=== PATIENT | male | born 1950 | race Caucasian/White ===

== ENCOUNTER 2019-09-14 17:00 | Inpatient (IN) | payer MEDICARE ==
[~2019-09-14] VITALS: Ht 172.7 cm; Wt 126.6 kg
[2019-09-15 02:00] VITALS: BP 106/64
[2019-09-15] MEDS ORDERED: ACETAMINOPHEN 325MG TABLET PO PRN ×2 (02:15→14:15)
[2019-09-15] MEDS ORDERED: POLYVINYL ALCOHOL OPHTH DROPS 15ML RIGHTEYE PRN (02:15)
[2019-09-15] MEDS ORDERED: LISI10TA5 PO (02:20)
[2019-09-15] MEDS ORDERED: MIDO2.5T PO (02:20)
[2019-09-15] MEDS ORDERED: ALLO100T PO (02:20)
[2019-09-15] MEDS ORDERED: FURO40TA5 PO (02:20)
[2019-09-15] MEDS ORDERED: TAMS-11 PO (02:20)
[2019-09-15] MEDS ORDERED: OMEP20CA5 PO (02:20)
[2019-09-15] MEDS ORDERED: NEPHRO VITAMINS PO (02:20)
[2019-09-15 06:52] LABS: HEMATOCRIT. 28.3 % (42.0-52.0); HEMOGLOBIN. 9.3 g/dL (14.0-18.0); MEAN CORPUSCULAR HEMOGLOBIN 31.6 pg (28.0-32.0); MEAN PLATELET VOLUME 10.8 fl (7.4-10.4); PLATELET 217 x1000/uL (130-400); RED BLOOD CELL COUNT 2.95 mill/uL (4.7-6.1); RED CELL DISTRIBUTION WIDTH 16.4 % (11.6-14.6)
[2019-09-15] MEDS: MIDODRINE HCL 5MG TABLET PO SCH ×3 (08:40→16:21)
[2019-09-15] MEDS: HEPARIN 5000 UNITS/ML VIAL SUBCUT SCH ×2 (08:43→21:21)
[2019-09-15 12:00] VITALS: BP 108/51
[2019-09-15] MEDS: PIPERACILLIN/TAZOBACTAM 2.25 G in DEXTROSE 5% WATER 50 ML IV SCH (12:58)
[2019-09-15] MEDS ORDERED: VANCOMYCIN 2,000 MG in DEXT 5% WATER 500 ML IV SCH (14:00)
[2019-09-15] MEDS ORDERED: MORPHINE SULFATE 2 MG/ML CPJ (NOT FOR IM USE) IV PRN (14:15)
[2019-09-15] MEDS ORDERED: ACETAMINOPHEN 650MG SUPP PR PRN (14:15)
[2019-09-15] MEDS ORDERED: LACTULOSE 20G/30ML UDC PO PRN (14:15)
[2019-09-15] MEDS ORDERED: IPRATROPIUM/ALBUTEROL 0.5-3(2.5)MG/3ML NEB HHN PRN (14:15)
[2019-09-15] MEDS ORDERED: LORAZEPAM 2MG/ML CPJ IV PRN (14:15)
[2019-09-15] MEDS ORDERED: HYDRALAZINE 20MG/ML VIAL IV PRN (14:30)
[2019-09-15 14:33] LABS: ATYPICAL LYMPHOCYTES 1
[2019-09-15 14:34] LABS: PLATELET ESTIMATE NORMAL
[2019-09-15 16:00] VITALS: BP 116/59
[2019-09-15 20:00] VITALS: BP_SYST 138; BP_SYST 140; BP_DIAS 72; BP_DIAS 77; BP_DIAS 82
[2019-09-15] MEDS: FAMOTIDINE 20MG TABLET PO SCH (21:21)
[2019-09-16] VITALS: BP 119/65
[2019-09-16 00:27] LABS: INR 1.1; PARTIAL THROMBOPLASTIN TIME 29.2 sec (23.4-31.0)
[2019-09-16 04:00] VITALS: BP_SYST 122; BP_SYST 124; BP_DIAS 65
[2019-09-16 05:38] LABS: CHLORIDE 101 mEq/L (98-107)
[2019-09-16 06:16] LABS: HEMATOCRIT. 28.2 % (42.0-52.0); HEMOGLOBIN. 9.4 g/dL (14.0-18.0); MEAN CORPUSCULAR HEMOGLOBIN 31.8 pg (28.0-32.0); MEAN CORPUSCULAR VOLUME 95.8 fL (80.0-94.0); MEAN PLATELET VOLUME 10.3 fl (7.4-10.4); PLATELET 243 x1000/uL (130-400); RED BLOOD CELL COUNT 2.94 mill/uL (4.7-6.1); RED CELL DISTRIBUTION WIDTH 16.2 % (11.6-14.6)
[2019-09-16 07:23] LABS: PLATELET ESTIMATE NORMAL
[2019-09-16 08:00] VITALS: BP 125/49
[2019-09-16] MEDS: MIDODRINE HCL 5MG TABLET PO SCH ×2 (09:56→17:50)
[2019-09-16] MEDS: PIPERACILLIN/TAZOBACTAM 2.25 G in DEXTROSE 5% WATER 50 ML IV SCH ×2 (10:00→17:34)
[2019-09-16 12:18] VITALS: BP 116/97
[2019-09-16 16:26] VITALS: BP 122/50
[2019-09-16] MEDS ORDERED: HYDROCODONE/ACETAMINOPHEN 5/325MG TABLET PO PRN (17:15)
[2019-09-16] MEDS: HEPARIN 5000 UNITS/ML VIAL SUBCUT SCH ×2 (17:34→21:00)
[2019-09-16] MEDS: ALLOPURINOL 100 MG TABLET PO SCH (17:53)
[2019-09-16] MEDS ORDERED: VANCOMYCIN 1500MG in DEXTROSE 5% WATER 250ML IV NR (18:00)
[2019-09-16] MEDS ORDERED: MAGNESIUM 1 G PREMIX 100 ML IV NR (18:30)
[2019-09-16 20:00] VITALS: BP 106/59
[2019-09-16 20:54] LABS: BG CARBOXYHEMOGLOBIN 0.1 % (0.5-1.5); BG DEOXYHEMOGLOBIN 4.5 % (0.0-5.0); BG FRACTION INSPIRED OXYGEN 21; BG HCO3 ACT 21.3 mmol/L (22.0-26.0); BG METHEMOGLOBIN 0.1 % (0.0-1.5); BG OXYGEN SATURATION 95.5 % (92.0-98.5); BG OXYHEMOGLOBIN 95.3 % (94.0-97.0); BG PCO2 35.5 mmHg (35.0-45.0); BG PH 7.397 (7.350-7.450); BG PO2 80.9 mmHg (75.0-100.0); BG SAMPLE SITE RIGHT RADIAL; BG TOTAL HEMOGLOBIN 10.7 g/dL (12.0-18.0); BG VENT MODE ROOM AIR
[2019-09-16] MEDS: FAMOTIDINE 20MG TABLET PO SCH (20:57)
[2019-09-17] VITALS: BP 101/66
[2019-09-17] MEDS: PIPERACILLIN/TAZOBACTAM 2.25 G in DEXTROSE 5% WATER 50 ML IV SCH ×3 (02:05→17:21)
[2019-09-17 04:00] VITALS: BP 112/49
[2019-09-17 07:22] LABS: BASOPHILS % 0.4 % (0.0-2.0); EOSINOPHILS % 4.9 % (0.0-5.0); HEMATOCRIT. 25.3 % (42.0-52.0); HEMOGLOBIN. 8.3 g/dL (14.0-18.0); LYMPHOCYTES % 15.9 % (20.0-50.0); MEAN CORPUSCULAR HEMOGLOBIN 31.5 pg (28.0-32.0); MEAN CORPUSCULAR VOLUME 95.8 fL (80.0-94.0); MEAN PLATELET VOLUME 10.3 fl (7.4-10.4); MONOCYTES % 5.6 % (2.0-8.0); NEUTROPHILS % 73.2 % (40.0-76.0); PLATELET 242 x1000/uL (130-400); RED BLOOD CELL COUNT 2.64 mill/uL (4.7-6.1); RED CELL DISTRIBUTION WIDTH 16.1 % (11.6-14.6)
[2019-09-17 07:34] LABS: T4 FREE 1.06 ng/dL (0.76-1.46)
[2019-09-17 08:00] VITALS: BP 110/55
[2019-09-17] MEDS: ALLOPURINOL 100 MG TABLET PO SCH (08:57)
[2019-09-17] MEDS: HEPARIN 5000 UNITS/ML VIAL SUBCUT SCH (08:58)
[2019-09-17] MEDS: MIDODRINE HCL 5MG TABLET PO SCH ×3 (08:58→17:21)
[2019-09-17 12:24] VITALS: BP 117/61
[2019-09-17] MEDS: DIPHENHYDRAMINE 50MG/ML VIAL IV PRN (12:46)
[2019-09-17 16:34] VITALS: BP 99/59
[2019-09-17 20:00] VITALS: BP 102/57
[2019-09-17] MEDS: FAMOTIDINE 20MG TABLET PO SCH (22:09)
[2019-09-18] VITALS: BP 103/66
[2019-09-18] MEDS: DIPHENHYDRAMINE 50MG/ML VIAL IV PRN ×2 (00:07→06:16)
[2019-09-18] MEDS: PIPERACILLIN/TAZOBACTAM 2.25 G in DEXTROSE 5% WATER 50 ML IV SCH ×3 (02:10→17:36)
[2019-09-18 04:00] VITALS: BP 116/59
[2019-09-18 06:54] LABS: INR 1.1
[2019-09-18 07:09] LABS: BASOPHILS % 1.2 % (0.0-2.0); EOSINOPHILS % 7.5 % (0.0-5.0); HEMATOCRIT. 26.4 % (42.0-52.0); HEMOGLOBIN. 8.7 g/dL (14.0-18.0); LYMPHOCYTES % 19.4 % (20.0-50.0); MEAN CORPUSCULAR HEMOGLOBIN 31.7 pg (28.0-32.0); MEAN CORPUSCULAR VOLUME 95.9 fL (80.0-94.0); MEAN PLATELET VOLUME 9.5 fl (7.4-10.4); NEUTROPHILS % 64.9 % (40.0-76.0); PLATELET 258 x1000/uL (130-400); RED BLOOD CELL COUNT 2.76 mill/uL (4.7-6.1)
[2019-09-18 07:48] LABS: PHOSPHORUS 6.6 mg/dL (2.5-4.9)
[2019-09-18 08:00] VITALS: BP 108/58
[2019-09-18] MEDS: ALLOPURINOL 100 MG TABLET PO SCH (08:57)
[2019-09-18] MEDS: MIDODRINE HCL 5MG TABLET PO SCH ×3 (08:58→17:36)
[2019-09-18] MEDS ORDERED: CALCIUM ACETATE 667MG CAPSULE PO SCH (17:40)
[2019-09-18] MEDS ORDERED: EPOETIN ALFA 4000UNITS/ML VIAL SUBCUT SCH (21:00)
[2019-09-18 21:41] VITALS: BP 150/84
== END 2019-09-18 22:30 | disposition home or self-care (01) | DRG 314 ==
LOC: 8WST 17:00 → UNDOADMIN 17:00 → 8WST 09-15 00:50 → UNDODISIN 09-18 22:30
PROVIDERS: ADMIT Internal Medicine; ATTEND Internal Medicine
PROC: 05HY33Z Insertion of Infusion Device into Upper Vein, Percutaneous Approach (ICD-10-PCS; principal; 2019-09-15)
PROC: B54MZZA Ultrasonography of Right Upper Extremity Veins, Guidance (ICD-10-PCS; 2019-09-15)
PROC: B51M1ZA Fluoroscopy of Right Upper Extremity Veins using Low Osmolar Contrast, Guidance (ICD-10-PCS; 2019-09-15)
PROC: 5A1D70Z Performance of Urinary Filtration, Intermittent, Less than 6 Hours Per Day (ICD-10-PCS; 2019-09-15)
DX: T80.211A Bloodstream infection due to central venous catheter, initial encounter (principal); N18.6 End stage renal disease; A41.02 Sepsis due to Methicillin resistant Staphylococcus aureus; E87.1 Hypo-osmolality and hyponatremia; I12.0 Hypertensive chronic kidney disease with stage 5 chronic kidney disease or end stage renal disease; T82.7XXA Infection and inflammatory reaction due to other cardiac and vascular devices, implants and grafts, initial encounter; Z86.14 Personal history of Methicillin resistant Staphylococcus aureus infection; Y83.8 Other surgical procedures as the cause of abnormal reaction of the patient, or of later complication, without mention of misadventure at the time of the procedure; N40.0 Benign prostatic hyperplasia without lower urinary tract symptoms; M10.9 Gout, unspecified; E87.6 Hypokalemia; K21.9 Gastro-esophageal reflux disease without esophagitis; D63.8 Anemia in other chronic diseases classified elsewhere; E83.42 Hypomagnesemia; H43.11 Vitreous hemorrhage, right eye; Y92.89 Other specified places as the place of occurrence of the external cause; Z99.2 Dependence on renal dialysis
CPT/HCPCS: 36415; 36556; 36600; 71045; 77001; 80048; 80061; 80202; 82375; 82805; 83735; 84100; 84153; 84439; 84443; 84550; 87804; 93306; 93970; A6261; C1752; J0885; J1200; J1644; J2543; J3370; J3475; J7040; J7060; G0103